=== PATIENT | male | born 1940 | race Two or more races ===

== ENCOUNTER 2018-07-29 15:56 | Emergency (ER) | payer MEDICARE, OTHER ==
[~2018-07-29] VITALS: Ht 180.3 cm; Wt 102.0 kg
[~2018-07-29 15:56] MED LIST: AMLO1TAB53 PO; ASPI-1009 PO; CALC0.258; CHOL200035 PO; DUTA1CPM PO; LOVA40TA76 PO; MEMA5TAB PO; MULT-785 PO; OMEP20TA5 PO; SUBC1EAC17 MC; [UNRECOGNIZED DRUG - OTHER] PO
[2018-07-29] MEDS ORDERED: ketorolac tromethamine 15mg/ml inj. IV ONE (16:35)
[2018-07-29] MEDS ORDERED: diazepam 5mg tablet PO ONE (16:35)
[2018-07-29] MEDS ORDERED: DIAZ-351 PO (17:02)
[2018-07-29] MEDS ORDERED: HYDR-3965 PO (17:02)
[2018-07-29 17:30] VITALS: BP 160/68
== END 2018-07-29 17:32 | disposition home or self-care (01) ==
LOC: ER 15:57
DX: M54.5 Low back pain (principal); I10 Essential (primary) hypertension; E11.9 Type 2 diabetes mellitus without complications; K21.9 Gastro-esophageal reflux disease without esophagitis; Z79.82 Long term (current) use of aspirin; Z79.899 Other long term (current) drug therapy; Z56.0 Unemployment, unspecified; Z60.2 Problems related to living alone; X50.0XXA Overexertion from strenuous movement or load, initial encounter; Y93.89 Activity, other specified; Y92.89 Other specified places as the place of occurrence of the external cause; Y99.8 Other external cause status
CPT/HCPCS: 96374; 99284; J1885

== ENCOUNTER 2018-10-13 10:08 | Inpatient (IN) | payer MEDICARE, OTHER ==
[~2018-10-13] VITALS: Ht 180.3 cm; Wt 97.0 kg
[2018-10-13] VITALS (8 sets, daily range): BP systolic 89–112; BP diastolic 47–56
[~2018-10-13 10:08] MED LIST changes: +0.9 % SODIUM CHLORIDE 10 ML VIAL ONE; +AMLO-363 PO; -AMLO1TAB53 PO; -CALC0.258; +CALC0.258 PO; +DIAZ-351 PO; +atropine 0.1mg/ml 10ml syringe ONE; +calcium chloride 100 MG/1 ML inj IV ONE; +epiNEPHrine 0.1mg/ml 10ml syringe ONE; +etomidate 2mg/ml inj. ONE; +sodium bicarbonate (8.4%) 1 mEq/ml syringe ONE
--- NOTE | 2018-10-13 11:21 | NUR ---
DR. TRAN AT BEDSIDE.
[2018-10-13] MEDS ORDERED: ondansetron/PF 4mg/2ml inj IV ONE (11:30)
[2018-10-13] MEDS ORDERED: morphine 4 MG/ML inj SYRINge IV ONE (11:30)
[2018-10-13] MEDS ORDERED: normal saline 1000ML IV soln IVB ONE (11:40)
[2018-10-13 11:56] LABS: BASOPHILS % (AUTO) 0.2 % (0-1); EOSINOPHILS % (AUTO) 0.4 % (0-6); HEMATOCRIT 26.1 % (42.0-52.0); HEMOGLOBIN 8.7 g/dl (14.0-17.9); LYMPHOCYTES # (AUTO) 0.5 X10'3 (1.1-4.8); LYMPHOCYTES % (AUTO) 4.9 % (21-51); MEAN CORPUSCULAR HEMOGLOBIN 30.5 PG (27.0-31.0); MEAN CORPUSCULAR HGB CONC 33.3 % (33.0-36.5); MEAN CORPUSCULAR VOLUME 91.7 FL (78-98); MEAN PLATELET VOLUME 9.5 FL (7.4-10.4); MONOCYTES # (AUTO) 1.1 X10'3 (0-0.9); MONOCYTES % (AUTO) 10.3 % (2-12); NEUTROPHILS # (AUTO) 8.8 X10'3 (1.8-7.7); NEUTROPHILS % (AUTO) 84.2 % (42-75); PLATELET COUNT 117 X10'3 (140-440); RED BLOOD COUNT 2.84 X10'6 (4.70-6.10); RED CELL DISTRIBUTION WIDTH 14.6 % (11.5-14.5); WHITE BLOOD COUNT 10.5 X10'3 (4.5-11.0)
[2018-10-13 12:07] LABS: PROTHROMBIN TIME 10.4 SECONDS (9.0-12.0)
[2018-10-13 12:16] LABS: ALANINE AMINOTRANSFERASE 99 U/L (12-78); ALBUMIN 2.6 G/DL (3.4-5.0); ALBUMIN/GLOBULIN RATIO 0.7 (1.1-1.5); ALKALINE PHOSPHATASE 52 IU/L (46-116); ANION GAP 10 (8-16); ASPARTATE AMINO TRANSFERASE 72 U/L (10-37); BILIRUBIN,TOTAL 0.4 MG/DL (0.1-1.0); BLOOD UREA NITROGEN 84 MG/DL (7-18); CALCIUM 10.3 MG/DL (8.5-10.1); CHLORIDE 100 MMOL/L (99-107); CREATININE 4.19 MG/DL (0.60-1.10); GLUCOSE 263 MG/DL (70-104); LIPASE 69 U/L (73-393); POTASSIUM 5.8 MMOL/L (3.5-5.1); SODIUM 134 MMOL/L (135-145); TOTAL CARBON DIOXIDE 24.3 MMOL/L (24-32); TOTAL PROTEIN 6.2 G/DL (6.4-8.2); eGFR 14 ML/MIN
[2018-10-13] MEDS ORDERED: aspirin 81mg tab.chew PO ONE (12:30)
--- NOTE | 2018-10-13 12:31 | NUR ---
RT AT BEDSIDE.
[2018-10-13] MEDS ORDERED: HUM7525 SQ (12:39)
[2018-10-13] MEDS ORDERED: DULA1.5P SUBCUT (12:40)
[2018-10-13] MEDS ORDERED: EPOE10008 INJ (12:47)
[2018-10-13] MEDS ORDERED: CARV-50 PO (12:47)
[2018-10-13] MEDS ORDERED: GINK120C PO (12:47)
[2018-10-13] MEDS ORDERED: DONE10TA7 PO (12:47)
[2018-10-13] MEDS ORDERED: BLOO1STR METER (12:47)
[2018-10-13] MEDS ORDERED: FAMO20TA8 PO (12:47)
[2018-10-13] MEDS ORDERED: [UNRECOGNIZED DRUG - CODE] (12:52)
[2018-10-13] MEDS ORDERED: PSYL0.524 PO (12:52)
[2018-10-13] MEDS ORDERED: GABA600T2 PO (12:52)
[2018-10-13] MEDS ORDERED: LACTC PO (12:52)
--- NOTE | 2018-10-13 12:57 | NUR ---
RT PLACED PATIENT ON VENTILATION MASK 15L AT 50%. PATIENT'S SPO2 IMPROVED TO 93%.
[2018-10-13] MEDS ORDERED: morphine 4 MG/ML inj SYRINge IV PRN ×2 (13:10→15:51)
[2018-10-13] MEDS ORDERED: HYDROcodone/acetaminophen 5mg/325mg tablet PO PRN (13:10)
[2018-10-13] MEDS ORDERED: morphine 2 MG/ML inj. syringe IV PRN (13:10)
[2018-10-13] MEDS ORDERED: magnesium hydroxide 30ml (MOM) UD suspension PO PRN (13:10)
[2018-10-13] MEDS ORDERED: ipratropium/albuterol 3ml nebule NEB PRN (13:10)
[2018-10-13] MEDS ORDERED: bisacodyl 10mg suppository rectal RC PRN (13:10)
[2018-10-13] MEDS ORDERED: HYDROcodone/acetaminophen 10/325mg tab PO PRN (13:10)
[2018-10-13] MEDS ORDERED: ondansetron/PF 4mg/2ml inj IV PRN (13:10)
[2018-10-13] MEDS ORDERED: acetaminophen 325mg tablet PO PRN (13:10)
[2018-10-13] MEDS ORDERED: heparin 10,000 units/1 ML INJ IV ONE (13:20)
[2018-10-13] MEDS ORDERED: heparin 10,000 units/1 ML INJ IV PRN (13:20)
[2018-10-13] MEDS: heparin 25,000 UNIT/250ml bag 250 ML IV SCH (13:52)
--- NOTE | 2018-10-13 13:56 | NUR ---
POWER SYSTEM OPERATOR AT BEDSIDE.
[2018-10-13 14:03] LABS: PARTIAL THROMBOPLASTIN TIME 28 SECONDS (22-32)
--- NOTE | 2018-10-13 14:12 | NUR ---
DR. SINGLETON AT BEDSIDE.
[2018-10-13] MEDS ORDERED: epoetin 20,000 units/ml inj SQ ONE (14:30)
--- NOTE | 2018-10-13 14:34 | NUR ---
PATIENT SITTING UP IN BED EATING LUNCH, AT BEDSIDE.
[2018-10-13] MEDS: atorvastatin 20mg tablet PO SCH (14:35)
[2018-10-13] MEDS: normal saline 1000ml 1,000 ML IV SCH ×2 (14:40→22:53)
[2018-10-13 15:23] LABS: % IRON SATURATION 12 % (11-46); IRON 23 UG/DL (53-167); TOTAL IRON BINDING CAPACITY 200 UG/DL (259-388)
--- NOTE | 2018-10-13 15:55 | NUR ---
Received report from Chun MARIE in the ER.
[2018-10-13 15:57] LABS: FERRITIN 1172 NG/ML (26-388)
--- NOTE | 2018-10-13 16:25 | NUR ---
Pt brought to CICU room 2014 at 1600. Pt alert and oriented, family at bedside. Pt transferred to bed from [facility] with slide board, two PIVs present, venti mask on but not providing sufficient support, RT was called and patient placed on simple mask 15L. Sats up to 95%. at bedside, skin check done with 2 RNs, clear. Will discuss with Dr Ordaz questions about potassium 5.8 and insulin pump.
--- NOTE | 2018-10-13 16:55 | NUR ---
Spoke with Dr Ordaz about pt status. Dr Ordaz states he spoke with Dr Samson and got confirmation that he knows about the patient and will assess whether or not to take him for angiogram tonight or possibly tomorrow morning. I told him about the high K of 5.8 and that patient has his own insulin pump. He states in that case we will not be doing insulin/D50, instead just do a one time nebulizer and check potassium again later tonight. He also states it would be best to place a jacques catheter for monitoring critical care urine. He states if we have not heard from Dr Samson prior to end of shift, October PA will need to call him again to discuss whether or not he will need angiogram tonight.
[2018-10-13] MEDS ORDERED: albuterol 2.5 MG/3 ML nebule ONE (17:00)
--- NOTE | 2018-10-13 17:00 | NUR ---
Ochoa catheter placed, yellow urine flowed through tube, pt has penile implant, tolerated well.
[2018-10-13] MEDS ORDERED: albuterol 2.5 MG/3 ML nebule CONTNEB ONE (17:10)
[2018-10-13] MEDS ORDERED: LOSA100T57 PO (17:57)
[2018-10-13] MEDS ORDERED: EPOE10003 IJ (18:00)
[2018-10-13 18:10] LABS: CLARITY,URINE SLIGHTLY CLOUDY (Clear); COLOR,URINE YELLOW (Yellow); GLUCOSE, URINE NEGATIVE (Neg); KETONES,URINE NEGATIVE (Neg); LEUKOCYTE ESTERASE ,URINE NEGATIVE (Neg); NITRITES, URINE NEGATIVE (Neg); OCCULT BLOOD,URINE NEGATIVE (Neg); PROTEIN,URINE 100 mg/dl (Neg); UROBILINOGEN,URINE 0.2 E.U/dL (0.2-1.0)
[2018-10-13 18:11] LABS: UA COLLECTION TYPE NON-SPECIFIED
[2018-10-13 18:19] LABS: AMORPHOUS URATES 2+; CAL OXALATE CRYSTALS FEW /HPF (NEGATIVE); WBC,URINE 0-4 /HPF (0-4)
[2018-10-13 18:20] LABS: BACTERIA,URINE 1+ /HPF (Neg); MUCUS STRANDS NONE SEEN /LPF (Neg); RBC,URINE 0-2 /HPF (0-2); SQUAMOUS EPITHELIAL CELL,UR FEW /LPF (FEW)
--- NOTE | 2018-10-13 18:30 | NUR ---
Problems reprioritized. Patient report given, questions answered & plan of care reviewed with CYNTHIA Klein.
--- NOTE | 2018-10-13 18:31 | NUR ---
Patient in room CICU 2014. I have received report from CYNTHIA Grimaldo and had the opportunity to ask questions and assume patient care. Patient is resting comfortably on hospital bed, is present. He is A&O x4, GORDILLO and is appropriate. He reports no chest pain at this time, I will continue to monitor.
--- NOTE | 2018-10-13 18:39 | NUR ---
During report a critical trop of 11.3 was reported, and Latoya MARIE called Dr Ordaz who stated to called Dr Samson. We did that and he gave orders to start aggrastat, keep the heparin drip and states there will be no heart cath ordered tonight.
[2018-10-13] MEDS: tirofiban 5mg in NS 100mL 100 ML IV SCH (19:25)
[2018-10-13] MEDS: docusate sod 100mg capsule PO SCH (20:00)
[2018-10-13] MEDS: heparin, porcine 5000 units/ml vial SQ SCH (20:00)
[2018-10-13] MEDS: acetaminophen 325mg tablet PO PRN (21:52)
[2018-10-14] VITALS (30 sets, daily range): BP systolic 43–115; BP diastolic 41–58
[2018-10-14 01:13] LABS: ALANINE AMINOTRANSFERASE 368 U/L (12-78); ALBUMIN 2.4 G/DL (3.4-5.0); ALBUMIN/GLOBULIN RATIO 0.7 (1.1-1.5); ALKALINE PHOSPHATASE 54 IU/L (46-116); ANION GAP 12 (8-16); ASPARTATE AMINO TRANSFERASE 272 U/L (10-37); BILIRUBIN,TOTAL 0.3 MG/DL (0.1-1.0); BLOOD UREA NITROGEN 94 MG/DL (7-18); BUN/CREATININE RATIO 20.2 (5.4-32.0); CALCIUM 9.6 MG/DL (8.5-10.1); CHLORIDE 101 MMOL/L (99-107); CREATININE 4.66 MG/DL (0.60-1.10); GLUCOSE 100 MG/DL (70-104); MAGNESIUM 2.2 MG/DL (1.5-2.4); PHOSPHORUS 4.8 MG/DL (2.3-4.5); POTASSIUM 5.4 MMOL/L (3.5-5.1); SODIUM 136 MMOL/L (135-145); TOTAL CARBON DIOXIDE 23.5 MMOL/L (24-32); TOTAL PROTEIN 5.7 G/DL (6.4-8.2); eGFR 12 ML/MIN
[2018-10-14 01:15] LABS: INR 1.1 INR; PROTHROMBIN TIME 10.7 SECONDS (9.0-12.0)
[2018-10-14 01:17] LABS: BASOPHILS # (AUTO) 0.1 X10'3 (0-0.2); BASOPHILS % (AUTO) 0.6 % (0-1); EOSINOPHILS % (AUTO) 0.2 % (0-6); HEMATOCRIT 23.9 % (42.0-52.0); HEMOGLOBIN 8.5 g/dl (14.0-17.9); LYMPHOCYTES # (AUTO) 0.8 X10'3 (1.1-4.8); LYMPHOCYTES % (AUTO) 7.9 % (21-51); MEAN CORPUSCULAR HEMOGLOBIN 32.3 PG (27.0-31.0); MEAN CORPUSCULAR HGB CONC 35.4 % (33.0-36.5); MEAN CORPUSCULAR VOLUME 91.1 FL (78-98); MEAN PLATELET VOLUME 10.7 FL (7.4-10.4); MONOCYTES % (AUTO) 10.5 % (2-12); NEUTROPHILS % (AUTO) 80.8 % (42-75); PLATELET COUNT 106 X10'3 (140-440); RED BLOOD COUNT 2.62 X10'6 (4.70-6.10); RED CELL DISTRIBUTION WIDTH 13.8 % (11.5-14.5); WHITE BLOOD COUNT 9.9 X10'3 (4.5-11.0)
[2018-10-14] MEDS: tirofiban 5mg in NS 100mL 100 ML IV SCH ×2 (04:15→16:09)
--- NOTE | 2018-10-14 04:19 | NUR ---
Patient was nauseous, says he has a post nasal drip. I gave him some Zofran and he checked his BG which was 72. He drank some juice, blew his nose and says he feels better. I will continue to monitor.
[2018-10-14 05:12] LABS: LARGE PLATELETS FEW; PLATELET ESTIMATE DECREASED
[2018-10-14 05:20] LABS: ABG BASE EXCESS -5.7 mmol/L (-2.0-3.0); ABG HCO3 21.6 mmol/L (22.0-26.0); ABG OXYGEN SATURATION 85.2 % (95-98); ABG PCO2 (T) 52.5 mmHg (35.0-48.0); ABG PH (T) 7.235 (7.350-7.450); ABG PO2 (T) 61.8 mmHg (83-108); ALLEN'S TEST Positive; FCOHb 0.3 % (0.5-1.5); FLOW 15 L/min; FMetHb 0.3 % (0.3-1.12); FO2Hb 84.7 % (94-100); PATIENT TEMPERATURE 37.7; TOTAL HEMOGLOBIN 9.9 G/dl (14.0-18.0)
[2018-10-14] MEDS ORDERED: insulin Lispro (HumaLOG) vial - multi-dose SQ SCH (05:25)
[2018-10-14] MEDS ORDERED: dextrose ORAL solution 15 GM/59 ML bottle PO PRN ×2 (05:25)
[2018-10-14] MEDS ORDERED: glucagon, human recombinant 1mg kit SUBCUT PRN (05:25)
[2018-10-14] MEDS ORDERED: dextrose 50%-water 50ml dispensing syringe IV PRN (05:25)
[2018-10-14] MEDS ORDERED: furosemide 10 MG/1 ML 10ml inj IV ONE (05:30)
[2018-10-14] MEDS: dextrose 50%-water 50ml dispensing syringe IV PRN ×2 (05:32→18:20)
--- NOTE | 2018-10-14 06:13 | NUR ---
Around 0430 the patient began struggling to breath, O2 sats dropping with High flow NC @15. October,MARIA ESTHER came to bedside and consulted with Dr. Ordaz who wanted Lasix 80mg given. The patient was also started on Bipap @75%, I stopped NS infusion around 0400. Labs were ordered and pending. I will continue to monitor.
--- NOTE | 2018-10-14 06:30 | NUR ---
Patient in room CICU 2014. I have received report from CYNTHIA Canseco and had the opportunity to ask questions and assume patient care.
--- NOTE | 2018-10-14 06:36 | NUR ---
Problems reprioritized. Patient report given, questions answered & plan of care reviewed with CYNTHIA Hargrove.
[2018-10-14] MEDS ORDERED: pantoprazole 40mg Tablet.DR PO SCH (07:30)
[2018-10-14] MEDS ORDERED: aspirin 325mg tablet, delayed-release (Ecotrin) PO SCH (08:00)
[2018-10-14] MEDS: heparin, porcine 5000 units/ml vial SQ SCH ×2 (08:00→20:00)
[2018-10-14] MEDS: atorvastatin 20mg tablet PO SCH (08:29)
[2018-10-14] MEDS ORDERED: aspirin 81mg tablet.DR PO SCH (08:30)
[2018-10-14] MEDS: docusate sod 100mg capsule PO SCH ×2 (08:31→20:51)
--- NOTE | 2018-10-14 08:48 | NUR ---
monitoring resp status, only able to tolerate off bipap for 10-15min for breakfast, desat to 85% on 10L high flow. Addendum: 10/14/18 at 0849 by Beena Baugh RN Amended: Links added.
[2018-10-14 08:53] LABS: CHOL/HDL RATIO 2.1 (0.00-4.99); CHOLESTEROL 123 MG/DL (0-200); HDL CHOLESTEROL 59 MG/DL (35-60); LDL CHOLESTEROL 46 MG/DL (50-100); TRIGLYCERIDES 62 MG/DL (20-135)
[2018-10-14] MEDS: levoFLOXACIN-Levaquin 250mg/D5 50 ML IV SCH (09:12)
[2018-10-14] MEDS: cefepime 1GM/NS ADD-VANTAGE 100 ML IV SCH (09:12)
--- NOTE | 2018-10-14 10:10 | NUR ---
pt is on bipap, bipap removed for breakfast for 10-15min. 10L high flow applied and pt desated to 85%, bipap put back on. Dr. Ordaz arrived on unit and assessed pt, updated on pt condition, HD cath placed by MD at bedside under sterile technique, pt tolerated procedure well with no signs of resp distress or arrhythmias. CXR obtained after
[2018-10-14] MEDS ORDERED: albumin (human) 25% 100ml IV 100 ML IV PRN (11:00)
[2018-10-14] MEDS ORDERED: epoetin 20,000 units/ml inj IV ONE (11:00)
[2018-10-14] MEDS ORDERED: heparin 1,000 units/ml 10ml inj HE ONE ×2 (11:00)
[2018-10-14 11:48] LABS: PARTIAL THROMBOPLASTIN TIME 41 SECONDS (22-32)
[2018-10-14] MEDS: heparin 25,000 UNIT/250ml bag 250 ML IV SCH ×2 (12:13→16:17)
[2018-10-14] MEDS: acetaminophen 325mg tablet PO PRN ×2 (12:13→20:52)
[2018-10-14] MEDS ORDERED: [UNRECOGNIZED DRUG - SUPPLY] SQ SCH (12:25)
--- NOTE | 2018-10-14 12:45 | NUR ---
PTT resulted, heparin bolus given per protocol. tylenol PO given for temp 38.5F. will continue to monitor.
[2018-10-14] MEDS ORDERED: gelatin sponge, absorbable (Gelfoam 12-7MM) sponge TP ONE (13:42)
[2018-10-14] MEDS ORDERED: fentaNYL/PF 50MCG/1 ML 2ML syringe ONE (15:51)
[2018-10-14] MEDS ORDERED: iohexol 350MG/ML 100ml bottle IV ONE (15:52)
[2018-10-14] MEDS ORDERED: midazolam 2 mg/2 ml injection ONE (15:52)
[2018-10-14] MEDS ORDERED: LIDOcaine 1% (10mg/ml)w/preservative injection 20ml MDV ONE (15:53)
--- NOTE | 2018-10-14 15:53 | NUR ---
RN spoke with hemodialysis lab technician regarding dialysis in session for two more hours.
--- NOTE | 2018-10-14 18:18 | NUR ---
Problems reprioritized. Patient report given, questions answered & plan of care reviewed with CYNTHIA Canseco.
--- NOTE | 2018-10-14 18:20 | NUR ---
Patient in room CICU 2014. I have received report from Hargrove RN and had the opportunity to ask questions and assume patient care. Patient just finished dialysis and is waiting to go to the clinical laboratory scientist. He is A&O x4, GORDILLO and is appropriate. His is at the bedside, I will continue to monitor.
--- NOTE | 2018-10-14 19:36 | NUR ---
[employer] is here to transport the patient for his cath.
[2018-10-14] MEDS ORDERED: atropine 0.1mg/ml 10ml syringe ONE (19:58)
[2018-10-14] MEDS ORDERED: carVEDilol 12.5mg tablet PO SCH (20:00)
[2018-10-14] MEDS ORDERED: psyllium seed 3.4 gm packet PO SCH (20:00)
[2018-10-14] MEDS ORDERED: lactobacillus rhamnosus 10,000 MMU CELLS/CAPSULE PO SCH (20:00)
--- NOTE | 2018-10-14 20:15 | NUR ---
Rec'd report from CYNTHIA Archuleta in the labor employment associate. Patient has Per close in right groin, no intervention needs surgical consult. BP and O2 sats low.
--- NOTE | 2018-10-14 20:32 | NUR ---
Patient back from record label internship.
[2018-10-14] MEDS ORDERED: insulin glargine (Lantus) pen - multi-dose SQ SCH (21:00)
[2018-10-14] MEDS ORDERED: gabapentin 300mg capsule PO SCH (21:00)
[2018-10-14] MEDS ORDERED: donepezil 5mg tablet PO SCH (21:00)
[2018-10-14] MEDS ORDERED: albumin (human) 25% 100ml IV 100 ML IV ONE (22:25)
[2018-10-15] VITALS (16 sets, daily range): BP systolic 44–112; BP diastolic 32–62
[2018-10-15 04:31] LABS: BASOPHILS # (AUTO) 0.1 X10'3 (0-0.2); BASOPHILS % (AUTO) 0.7 % (0-1); EOSINOPHILS # (AUTO) 0.1 X10'3 (0-0.9); EOSINOPHILS % (AUTO) 1.2 % (0-6); HEMATOCRIT 23.7 % (42.0-52.0); HEMOGLOBIN 8.1 g/dl (14.0-17.9); LYMPHOCYTES # (AUTO) 0.9 X10'3 (1.1-4.8); LYMPHOCYTES % (AUTO) 9.1 % (21-51); MEAN CORPUSCULAR HEMOGLOBIN 31.1 PG (27.0-31.0); MEAN CORPUSCULAR VOLUME 91.3 FL (78-98); MEAN PLATELET VOLUME 9.5 FL (7.4-10.4); MONOCYTES # (AUTO) 1.2 X10'3 (0-0.9); MONOCYTES % (AUTO) 12.3 % (2-12); NEUTROPHILS # (AUTO) 7.2 X10'3 (1.8-7.7); NEUTROPHILS % (AUTO) 76.7 % (42-75); PLATELET COUNT 138 X10'3 (140-440); RED CELL DISTRIBUTION WIDTH 14.6 % (11.5-14.5); WHITE BLOOD COUNT 9.4 X10'3 (4.5-11.0)
[2018-10-15 04:48] LABS: ALANINE AMINOTRANSFERASE 307 U/L (12-78); ALBUMIN 2.6 G/DL (3.4-5.0); ALBUMIN/GLOBULIN RATIO 0.8 (1.1-1.5); ALKALINE PHOSPHATASE 60 IU/L (46-116); ANION GAP 10 (8-16); ASPARTATE AMINO TRANSFERASE 118 U/L (10-37); BILIRUBIN,TOTAL 0.5 MG/DL (0.1-1.0); BLOOD UREA NITROGEN 67 MG/DL (7-18); BUN/CREATININE RATIO 15.8 (5.4-32.0); CALCIUM 8.8 MG/DL (8.5-10.1); CHLORIDE 98 MMOL/L (99-107); CREATININE 4.23 MG/DL (0.60-1.10); GLUCOSE 169 MG/DL (70-104); MAGNESIUM 2.2 MG/DL (1.5-2.4); PHOSPHORUS 5.3 MG/DL (2.3-4.5); SODIUM 135 MMOL/L (135-145); TOTAL CARBON DIOXIDE 26.7 MMOL/L (24-32); eGFR 14 ML/MIN
[2018-10-15 04:54] LABS: INR 1.1 INR; PROTHROMBIN TIME 11.4 SECONDS (9.0-12.0)
--- NOTE | 2018-10-15 06:28 | NUR ---
Problems reprioritized. Patient report given, questions answered & plan of care reviewed with CYNTHIA Glynn.
[2018-10-15] MEDS ORDERED: NORepinephrine 8mg/ 250ml NS 250 ML IV SCH (07:50)
[2018-10-15] MEDS ORDERED: NORepinephrine 8mg/ 250ml NS 250 ML IV ONE ×2 (07:51→12:57)
[2018-10-15] MEDS ORDERED: calcitriol 0.25mcg capsule PO SCH (08:00)
[2018-10-15] MEDS ORDERED: atorvastatin 10mg tablet PO SCH (08:00)
[2018-10-15] MEDS ORDERED: aspirin 325mg tablet PO SCH (08:30)
[2018-10-15] MEDS ORDERED: DOBUTamine-DoBUTrex 500mg/D5W 250 ML IV SCH (08:40)
[2018-10-15] MEDS ORDERED: DOPamine 400mg/D5W 250ml 250 ML IV SCH (08:40)
[2018-10-15] MEDS ORDERED: insulin glargine (Lantus) pen - multi-dose SQ PRN (09:20)
[2018-10-15] MEDS ORDERED: MESSAGE TO NURSING PO ONE ×5 (09:20→10:00)
[2018-10-15] MEDS: levoFLOXACIN-Levaquin 250mg/D5 50 ML IV SCH (09:50)
[2018-10-15] MEDS: cefepime 1GM/NS ADD-VANTAGE 100 ML IV SCH (10:42)
[2018-10-15] MEDS ORDERED: FENTANYL-0.9 % NACL/PF 100 ML IV PRN (11:13)
[2018-10-15] MEDS ORDERED: midazolam 100mg in NS 100ml 100 ML IV PRN (11:13)
[2018-10-15] MEDS ORDERED: midazolam 2 mg/2 ml injection ONE (11:14)
[2018-10-15 11:26] LABS: ABG HCO3 20.2 mmol/L (22.0-26.0); ABG OXYGEN SATURATION 85.6 % (95-98); ABG PCO2 (T) 43.1 mmHg (35.0-48.0); ABG PH (T) 7.288 (7.350-7.450); ABG PO2 (T) 60.1 mmHg (83-108); FCOHb 0.3 % (0.5-1.5); FO2Hb 85.3 % (94-100); MINUTE VOLUME 13 L/min; PATIENT TEMPERATURE 36.9; PEEP 5 cm H2O; RESPIRATORY RATE 16 b/min; RESPIRATORY RATE (OBSERVED) 31 b/min; TIDAL VOLUME 450 mL; TOTAL HEMOGLOBIN 7.9 G/dl (14.0-18.0)
[2018-10-15] MEDS ORDERED: LIDOcaine 1% (10mg/ml)w/preservative injection 20ml MDV ONE (11:35)
[2018-10-15] MEDS ORDERED: heparin 1,000 UNITS/NS 500ml 500 ML ONE (11:35)
[2018-10-15] MEDS ORDERED: phenylephrine 10mg/ml inj. ONE (12:03)
[2018-10-15] MEDS ORDERED: epiNEPHrine 0.1mg/ml 10ml syringe ONE ×2 (12:04→12:29)
[2018-10-15] MEDS ORDERED: atropine 0.1mg/ml 10ml syringe ONE (12:13)
[2018-10-15 12:55] LABS: ABG BASE EXCESS -10.6 mmol/L (-2.0-3.0); ABG HCO3 15.9 mmol/L (22.0-26.0); ABG PCO2 (T) 37.7 mmHg (35.0-48.0); ABG PH (T) 7.242 (7.350-7.450); ABG PO2 (T) 61.7 mmHg (83-108); FCOHb 0.3 % (0.5-1.5); FLOW 15 L/min; FMetHb 0.1 % (0.3-1.12); FO2Hb 83.7 % (94-100); RESPIRATORY RATE (OBSERVED) 22 b/min; TOTAL HEMOGLOBIN 7.2 G/dl (14.0-18.0)
[2018-10-15] MEDS ORDERED: vasopressin inj. 60 UNIT in normal saline 100ml IV soln 97 ML IV SCH (12:55)
[2018-10-15] MEDS ORDERED: insulin Lispro (HumaLOG) vial - multi-dose SQ SCH (13:00)
--- NOTE | 2018-10-15 13:16 | NUR ---
DM consult: A1C 8.2. P s/p code and intubation sent to yard labor supervisor and will need possibly additional cardiac surgery per MD note. Pt hxT1DM and per CM daughter admits pt not greatest diet for T1DM but does use insulin pump. DM ed deferred at this time in light of current circumstances. If prolonged intubation pt would benefit from enteral nutrition once clinically stable especially if further surgery is needed. Will likely need long-term HD per CM note. Will continue to monitor. Rec: 1. IF TF once clinically stable; Vital HP at 90 2. IF TF, prealbumin Q /, daily wts Addendum: 10/15/18 at [address] Amended: Links added.
[2018-10-15 13:17] LABS: BASOPHILS % (AUTO) 0.3 % (0-1); EOSINOPHILS % (AUTO) 0 % (0-6); LYMPHOCYTES # (AUTO) 0.8 X10'3 (1.1-4.8); LYMPHOCYTES % (AUTO) 9.7 % (21-51); MEAN CORPUSCULAR HEMOGLOBIN 30.6 PG (27.0-31.0); MEAN CORPUSCULAR HGB CONC 33.4 % (33.0-36.5); MEAN CORPUSCULAR VOLUME 91.5 FL (78-98); MEAN PLATELET VOLUME 9.9 FL (7.4-10.4); MONOCYTES # (AUTO) 0.9 X10'3 (0-0.9); MONOCYTES % (AUTO) 10.8 % (2-12); NEUTROPHILS # (AUTO) 6.8 X10'3 (1.8-7.7); NEUTROPHILS % (AUTO) 79.2 % (42-75); PLATELET COUNT 97 X10'3 (140-440); RED BLOOD COUNT 2.13 X10'6 (4.70-6.10); RED CELL DISTRIBUTION WIDTH 14.8 % (11.5-14.5); WHITE BLOOD COUNT 8.6 X10'3 (4.5-11.0)
[2018-10-15 13:24] LABS: HEMOGLOBIN 6.5 g/dl (14.0-17.9)
[2018-10-15 13:25] LABS: HEMATOCRIT 19.5 % (42.0-52.0)
[2018-10-15 13:35] LABS: ALBUMIN 2.3 G/DL (3.4-5.0); ALBUMIN/GLOBULIN RATIO 0.8 (1.1-1.5); ALKALINE PHOSPHATASE 98 IU/L (46-116); ANION GAP 23 (8-16); BILIRUBIN,TOTAL 1.3 MG/DL (0.1-1.0); BLOOD UREA NITROGEN 79 MG/DL (7-18); BUN/CREATININE RATIO 14.7 (5.4-32.0); CALCIUM 9.1 MG/DL (8.5-10.1); CHLORIDE 99 MMOL/L (99-107); CREATININE 5.39 MG/DL (0.60-1.10); GLUCOSE 124 MG/DL (70-104); POTASSIUM 5.8 MMOL/L (3.5-5.1); SODIUM 139 MMOL/L (135-145); TOTAL CARBON DIOXIDE 17.1 MMOL/L (24-32); TOTAL PROTEIN 5.2 G/DL (6.4-8.2); eGFR 10 ML/MIN
[2018-10-15 13:36] LABS: MAGNESIUM 2.7 MG/DL (1.5-2.4)
[2018-10-15 13:44] LABS: PHOSPHORUS 9.7 MG/DL (2.3-4.5); TROPONIN I 13.65 NG/ML (0.0-0.05)
[2018-10-15 13:56] LABS: INR 1.7 INR; PARTIAL THROMBOPLASTIN TIME 38 SECONDS (22-32); PROTHROMBIN TIME 16.7 SECONDS (9.0-12.0)
[2018-10-15 14:14] LABS: ASPARTATE AMINO TRANSFERASE 6055 U/L (10-37)
[2018-10-15 14:15] LABS: ALANINE AMINOTRANSFERASE 6102 U/L (12-78)
--- NOTE | 2018-10-15 15:50 | NUR ---
At 0745, Patients blood pressure not responding to Albumin administration with SBP in the 70s. Dr. Ordaz notified; orders to start a Levophed drip through Wyatt catheter and to wait for quad-lumen placement; Heparin removed from catheter per protocol and Levophed initiated. At 0900, Dr. Ordaz at bedside with the successful placement of an arterial line and central line in the right groin. Arterial blood pressure shows improvement with SBP in the low 100s. Dr. Harris in to consult at 0915 and spoke with family about risks for open heart procedure; however, family aware that patient needs to be more stable. Per Dr. Ordaz, orders to wean off Levophed and start Dobutamine and Dopamine drips. Patient HR with little/no improvement in the 50s; occasionally dropping to the upper 40s. Dr. Harris at bedside again at 10:15 recommending a temporary pacemaker and Dr. Ordaz notified during rounds at 10:30. [address] Dr. Ordaz getting in touch with Dr. Fritz, orders to increase Dopamine and Dobutamine rates. At 11:00, RN in the room and noted changes in patients affect: patient looking around but not responding to verbal stimulus; HR in the 40s and irregular. Immediately thereafter, patient went asystole and code called. Dr. Ordaz at bedside. Patient with ROSC after Epi, Atropine, Sodium Bicarb, and Calcium administered during code. Patient then intubated after Etomidate administration with 8Fr. ET tube. Patient restrained per policy; however, began waking up before Fentanyl/Versed gtts started; 2mg IV Versed pushed per Dr. Martinez order. By 11:30, patient being prepared for going to microbiology lab manager for temporary pacemaker placement; patients Radha at bedside to sign consent form; all questions answered. Patient sent to microbiology lab manager with RN/RT and transportation sales consultant at 11:50. Patient coded in microbiology lab manager (please see microbiology lab manager documentation) and returned at 12:45 with a SBP in the 60s and HR in the 80s; orders to change pacer settings from 70 to 90; orders for Levophed and Vasopressin. Patient placed on monitor while Dr. Ordaz speaking with family; per familys request, the family would like to make patient DNR. Unable to increase patients blood pressure chemically and patient went asystole at 1303; pronounced by Dr. Ordaz and Renard MARIE. Family notified and at bedside. Organ donor network called at 1357; reference number [id number]. Haris on [address] called at 1415. Family took all of patients belongings. Haris picked patient up at 1550.
[2018-10-15] MEDS ORDERED: mupirocin 2% nasal ointment 1gm UD NS SCH (20:00)
[2018-10-16] MEDS ORDERED: cefazolin/dext.iso 2gm/50ml 50 ML IV ONE (06:00)
[2018-10-16] MEDS ORDERED: dextrose 50%-water 50ml dispensing syringe IV PRN (06:00)
[2018-10-16] MEDS ORDERED: vancomycin/NS 1 GM ADD-VANTAGE 250 ML IV ONE (06:00)
[2018-10-16] MEDS ORDERED: insulin regular, human 100 UNIT in normal saline 100ml IV soln 100 ML IV SCH ×2 (06:00)
[2018-10-16] MEDS ORDERED: mineral oil/petrolatum ophthal oint EACHEYE SCH (14:00)
== END 2018-10-15 13:03 | disposition expired | DRG 208 ==
LOC: ER 10:08 → ED HOLD 13:08 → CICU 2S 15:44
PROVIDERS: ADMIT Internal Medicine Critical Care Medicine; ATTEND Internal Medicine Critical Care Medicine
PROC: 5A09357 Assistance with Respiratory Ventilation, Less than 24 Consecutive Hours, Continuous Positive Airway Pressure (ICD-10-PCS; principal; 2018-10-14)
PROC: 4A023N7 Measurement of Cardiac Sampling and Pressure, Left Heart, Percutaneous Approach (ICD-10-PCS; 2018-10-14)
PROC: B2111ZZ Fluoroscopy of Multiple Coronary Arteries using Low Osmolar Contrast (ICD-10-PCS; 2018-10-14)
PROC: B2151ZZ Fluoroscopy of Left Heart using Low Osmolar Contrast (ICD-10-PCS; 2018-10-14)
PROC: 5A1D70Z Performance of Urinary Filtration, Intermittent, Less than 6 Hours Per Day (ICD-10-PCS; 2018-10-14)
PROC: 05HM33Z Insertion of Infusion Device into Right Internal Jugular Vein, Percutaneous Approach (ICD-10-PCS; 2018-10-14)
PROC: B3121ZZ Fluoroscopy of Left Subclavian Artery using Low Osmolar Contrast (ICD-10-PCS; 2018-10-14)
PROC: 5A09357 Assistance with Respiratory Ventilation, Less than 24 Consecutive Hours, Continuous Positive Airway Pressure (ICD-10-PCS; 2018-10-15)
PROC: 5A1935Z Respiratory Ventilation, Less than 24 Consecutive Hours (ICD-10-PCS; 2018-10-15)
PROC: 5A12012 Performance of Cardiac Output, Single, Manual (ICD-10-PCS; 2018-10-15)
PROC: 04HY32Z Insertion of Monitoring Device into Lower Artery, Percutaneous Approach (ICD-10-PCS; 2018-10-15)
PROC: 4A133B1 Monitoring of Arterial Pressure, Peripheral, Percutaneous Approach (ICD-10-PCS; 2018-10-15)
PROC: 4A133J1 Monitoring of Arterial Pulse, Peripheral, Percutaneous Approach (ICD-10-PCS; 2018-10-15)
PROC: 0BH18EZ Insertion of Endotracheal Airway into Trachea, Via Natural or Artificial Opening Endoscopic (ICD-10-PCS; 2018-10-15)
PROC: 06HM33Z Insertion of Infusion Device into Right Femoral Vein, Percutaneous Approach (ICD-10-PCS; 2018-10-15)
PROC: 5A1223Z Performance of Cardiac Pacing, Continuous (ICD-10-PCS; 2018-10-15)
DX: J96.01 Acute respiratory failure with hypoxia (principal); I21.4 Non-ST elevation (NSTEMI) myocardial infarction; I50.21 Acute systolic (congestive) heart failure; J18.9 Pneumonia, unspecified organism; N18.4 Chronic kidney disease, stage 4 (severe); N17.9 Acute kidney failure, unspecified; I13.0 Hypertensive heart and chronic kidney disease with heart failure and stage 1 through stage 4 chronic kidney disease, or unspecified chronic kidney disease; J96.02 Acute respiratory failure with hypercapnia; E87.5 Hyperkalemia; I45.10 Unspecified right bundle-branch block; I46.9 Cardiac arrest, cause unspecified; D63.1 Anemia in chronic kidney disease; E11.22 Type 2 diabetes mellitus with diabetic chronic kidney disease; E11.319 Type 2 diabetes mellitus with unspecified diabetic retinopathy without macular edema; E11.42 Type 2 diabetes mellitus with diabetic polyneuropathy; E66.9 Obesity, unspecified; E78.5 Hyperlipidemia, unspecified; F03.90 Unspecified dementia, unspecified severity, without behavioral disturbance, psychotic disturbance, mood disturbance, and anxiety; G47.33 Obstructive sleep apnea (adult) (pediatric); I25.10 Atherosclerotic heart disease of native coronary artery without angina pectoris; Z96.651 Presence of right artificial knee joint; Z60.2 Problems related to living alone; I25.5 Ischemic cardiomyopathy; I49.5 Sick sinus syndrome; K21.9 Gastro-esophageal reflux disease without esophagitis; Z66 Do not resuscitate; Z56.0 Unemployment, unspecified; Z79.82 Long term (current) use of aspirin; Z79.899 Other long term (current) drug therapy; Z87.891 Personal history of nicotine dependence; Z68.29 Body mass index [BMI] 29.0-29.9, adult
CPT/HCPCS: 33210; 36415; 36600; 71045; 80053; 80061; 81001; 82728; 82803; 83036; 83540; 83550; 83605; 83690; 83721; 83735; 83880; 84100; 84132; 84443; 84484; 85018; 85025; 85610; 85730; 86885; 86900; 86901; 86920; 87040; 87070; 87502; 87503; 92950; 93005; 93306; 93308; 93458; 93880; 93971; 94640; 94660; 94760; 96361; 96374; 99285; A6257; C1729; C1756; C1760; C1769; G0257; G0378; J0171; J0461; J0690; J0692; J0885; J1250; J1265; J1644; J1815; J1940; J1956; J2001; J2150; J2250; J2370; J2405; J3010; J3246; J3490; J7030; P9047; Q9967